=== PATIENT | female | born 1985 | race Caucasian/White ===

== ENCOUNTER 2022-12-12 15:33 | Emergency (ER) | payer MEDICAID ==
[~2022-12-12] VITALS: Ht 167.6 cm; Wt 107.7 kg
[2022-12-12] MEDS ORDERED: HYDROCODON-ACE1 EA10 PO (20:57)
[2022-12-12] MEDS ORDERED: FLOMAX0.4 MG PO (20:57)
[2022-12-12] MEDS ORDERED: ONDANSETRON ODT8 MG PO (20:57)
== END 2022-12-12 21:27 | disposition home or self-care (01) ==
LOC: ED 15:33
DX: N20.1 Calculus of ureter (principal)
CPT/HCPCS: 36415; 74176; 80053; 81001; 84703; 85025; 96374; 96375; 99284-25; A9270; J2270; J2405; J7121